=== PATIENT | male | born 1940 | race Caucasian/White ===

== ENCOUNTER 2017-03-28 01:01 | Day surgery (SDC) | payer MEDICARE, OTHER ==
[2017-03-28] VITALS (7 sets, daily range): BP systolic 92–133; BP diastolic 54–88
[~2017-03-28] VITALS: Ht 175.3 cm; Wt 64.9 kg
[~2017-03-28 01:01] MED LIST: AMOX-559 PO; ASCO-183 PO; ASPI81TA94 PO; ATOR40TA24 PO; ATOR40TA69 PO; AZIT-1 PO; AZIT-17 PO; CHOL10005 PO; CHOL200022 PO; CLO75 PO; CLOP75TA PO; CYA1000 PO; FAMO-67 PO; FISH1CAP22 PO; FOLI-68 PO; GOLD1CAP PO; GUAI600T57 PO; HERBALS; LACT1CAP6 PO; LISI-362 PO; LISI20TA29 PO; MAGN250T34 PO; METO25TA93 PO; MULT-820 PO; OMEG-11 PO; ROBC PO; TES5T TOP; TEST2.5G TD; UBID100C44 PO; UBID50CA24 PO; VARD10TA19 PO; VARD10TA20 PO; VITA-175 PO; VITA-197 PO; VITAMINS; [UNRECOGNIZED DRUG - CODE] UR
[2017-03-28] MEDS ORDERED: PROPOFOL EMUL(*) 10MG/ML 20 ML 40 ML ONE (07:02)
[2017-03-28] MEDS ORDERED: NORMOSOL R SOLN(*) 1000 ML BAG 1,000 ML IV PRN (07:40)
[2017-03-28] MEDS ORDERED: MIDAZOLAM 2 MG/2 ML VIAL IVP ONE (07:40)
[2017-03-28] MEDS ORDERED: LIDOCAINE/SOD BICARB 8.4% SYR ID ONE (07:40)
[2017-03-28] MEDS ORDERED: PROPOFOL EMUL(*) 10MG/ML 20 ML 20 ML ONE (08:58)
--- NOTE | 2017-03-28 09:14 | Short(Outpt) Discharge Summary ---
Discharge Summary Reason for Hosp/Final Diag: (1) Colon cancer screening Status: Chronic Hospital Course & Plan: Colonoscopy with polypectomy completed without problems. Departure Discharge to: Home, Self Care Discharge Instructions Home Meds Active Scripts Metoprolol Tartrate (METOPROLOL TARTRATE) 25 Mg Tablet, 0.5 TAB PO BID, #90 TAB 1 Refill Prov:LUIS M SESAY MD 03/09/17 Atorvastatin Calcium (ATORVASTATIN CALCIUM) 40 Mg Tablet, 1 TAB PO QDAY, #90 TAB 3 Refills Prov:LUIS M SESAY MD 10/03/16 Reported Medications Alprostadil (MUSE) 500 Mcg Supp.ureth, 1 SUPP UR QDAY Y for sexual activity 08/31/15 TESTOSTERONE 1% Topical Gel (ANDROGEL 1% Topical Gel) 5 Gm Gel, 1 PACKET TOP QDAY, PACKET 08/31/15 Vardenafil Hcl (STAXYN) 10 Mg Tab.rapdis, 1 TAB PO QDAY Y for sexual activity 08/31/15 Ubidecarenone (CO Q-10) 50 Mg Capsule, 1 CAP PO QDAY, CAPSULE 08/31/15 Fish Oil/Vit E/Fat No.5/Hc137 (SUPER OMEGA-3 SOFTGEL) 1 Each Capsule, 1 CAP PO QDAY, CAPSULE 08/31/15 Folic Acid (FOLIC ACID) 1 Mg Tablet, 1 TAB PO QDAY, TAB 08/31/15 Vitamin E Mixed (VITAMIN E) 400 Unit Capsule, 1 CAP PO QDAY, CAPSULE 08/31/15 Cholecalciferol (Vitamin D3) (VITAMIN D) 2,000 Unit Tablet, 1 TAB PO QDAY, TAB 08/31/15 Fernandez Seal/Echinacea Purpurea (ECHINACEA & GOLDENSEAL CAP) 1 Each Capsule, 1 CAP PO QDAY, CAPSULE 08/31/15 Lactobacillus Combination No.4 (PROBIOTIC) 1 Each Capsule, 1 CAP PO QDAY, CAPSULE 08/31/15 Cyanocobalamin (Vitamin B-12) (VITAMIN B-12) 1,000 Mcg Tablet, 1 TAB PO QDAY, CAPSULE 08/31/15 Vitamin B Complex (B COMPLEX) 1 Each Tablet, 1 TAB PO QDAY 08/31/15 Aspirin (ASPIRIN) 81 Mg Tab.chew, 1 TAB PO QDAY, TAB.CHEW 10/15/13 Famotidine (FAMOTIDINE) 20 Mg Tablet, 1 TAB PO BID Y for GAS/HEARTBURN 10/15/13 Discontinued Scripts Guaifenesin/Codeine (GUAIFENESIN-CODEINE SYRUP) 5 Ml Syrp, 1-2 TSP PO QID Y for cough, #4 OZ 0 Refills Prov:LUIS M SESAY MD 03/15/17 Diet: Regular Activity: As Tolerated Special Instructions: Your colonoscopy was completed without any problems and your prep was excellent (Good Job!!). I removed a single polyp from your colon and it was sent to pathology. We will call you in the next week to let you know what the polyp is but, in any case, I recommend that your next colonoscopy, and possibly your last colonoscopy (if normal) be at 81 years old. FELIX DRAKE MD Mar 28, 2017 09:14
== END 2017-03-28 10:50 | disposition home or self-care (01) ==
LOC: OR 01:01
PROVIDERS: ATTEND Surgery
DX: Z12.11 Encounter for screening for malignant neoplasm of colon (principal); K63.5 Polyp of colon
CPT/HCPCS: 00811; 45385; 88305; J2704

== ENCOUNTER 2017-11-10 17:14 | Emergency (ER) | payer MEDICARE, OTHER ==
[~2017-11-10 17:14] MED LIST changes: -BROM5DRO2; -OFLO5DRO41; -PRED5DRO34; -TADA20TA33
--- NOTE | 2017-11-10 17:23 | ER Report ---
History and Physical Time Seen By MD: 17:16 Hx. of Stated Complaint: CP STARTED AT 1515 WHILE HIKING, 324 ASA GIVEN EN ROUTE, 1 NITRO GIVEN WELL HPI/ROS CHIEF COMPLAINT: Chest pain HISTORY OF PRESENT ILLNESS: 76-year-old male patient presents to emergency room with complaint of chest pain. Patient states that he was up hiking today with his daughter. He states they went approximately 3 miles and he developed signif icant chest pain. He states the chest pain started about 3:15 this afternoon. He states that he discuss this with his daughter who felt that they needed to stop, she is to go back the truck and coming get him. She felt like he needed to come to the hospital and get evaluated. Patient does have a past medical history of RI and 2 stents in the past. He has had a catheter done approximately 2 years a go which was clean. Patient denies any nausea, vomiting. He states he does have to burp a lot and feels like when he burps it does help with the discomfort. REVIEW OF SYSTEMS: Respiratory: No cough, no dyspnea. Cardiovascular: As noted above Gastrointestinal: No vomiting, no abdominal pain. Musculoskeletal: No back pain. Allergies: Coded Allergies: codeine (Verified Allergy, Severe, oral swelling, 11/10/17) guaifenesin (Verified Allergy, Severe, oral swelling, 11/10/17) pseudoephedrine (Verified Adverse Reaction, Intermediate, makes BP go very high, 11/10/17) Home Meds Active Scripts Metoprolol Tartrate (METOPROLOL TARTRATE) 25 Mg Tablet, 0.5 TAB PO BID, #90 TAB 3 Refills Prov:LUIS M SESAY MD 10/23/17 Atorvastatin Calcium (ATORVASTATIN CALCIUM) 40 Mg Tablet, 1 TAB PO QDAY, #90 TAB 3 Refills Prov:LUIS M SESAY MD 10/03/16 Reported Medications Tadalafil (CIALIS) 20 Mg Tablet 11/10/17 Bromfenac Sodium (Bromsite) 0.075 % Drops 11/10/17 Ofloxacin (Ofloxacin) 0.3 % Drops 11/10/17 Prednisolone Acetate (PREDNISOLONE ACETATE) 5 Ml Drops.susp 11/10/17 TESTOSTERONE 1% Topical Gel (ANDROGEL 1% Topical Gel) 5 Gm Gel, 1 PACKET TOP QDAY, PACKET 08/31/15 Ubidecarenone (CO Q-10) 50 Mg Capsule, 1 CAP PO QDAY, CAPSULE 08/31/15 Fish Oil/Vit E/Fat No.5/Hc137 (SUPER OMEGA-3 SOFTGEL) 1 Each Capsule, 1 CAP PO QDAY, CAPSULE 08/31/15 Cyanocobalamin (Vitamin B-12) (VITAMIN B-12) 1,000 Mcg Tablet, 1 TAB PO QDAY, CAPSULE 08/31/15 Aspirin (ASPIRIN) 81 Mg Tab.chew, 1 TAB PO QDAY, TAB.CHEW 10/15/13 Famotidine (FAMOTIDINE) 20 Mg Tablet, 1 TAB PO BID PRN for GAS/HEARTBURN 10/15/13 Discontinued Reported Medications Vardenafil Hcl (STAXYN) 10 Mg Tab.rapdis, 1 TAB PO QDAY PRN for sexual activity 08/31/15 Folic Acid (FOLIC ACID) 1 Mg Tablet, 1 TAB PO QDAY, TAB 08/31/15 Vitamin E Mixed (VITAMIN E) 400 Unit Capsule, 1 CAP PO QDAY, CAPSULE 08/31/15 Cholecalciferol (Vitamin D3) (VITAMIN D) 2,000 Unit Tablet, 1 TAB PO QDAY, TAB 08/31/15 Fernandez Seal/Echinacea Purpurea (ECHINACEA & GOLDENSEAL CAP) 1 Each Capsule, 1 CAP PO QDAY, CAPSULE 08/31/15 Lactobacillus Combination No.4 (PROBIOTIC) 1 Each Capsule, 1 CAP PO QDAY, CAPSULE 08/31/15 Vitamin B Complex (B COMPLEX) 1 Each Tablet, 1 TAB PO QDAY 08/31/15 Past Medical/Surgical History Patient has a past medical history of RI, hypertension, nocturia, right hand fracture. Patient has a surgical history of skin cancer removed from left ear, cervical laminectomy, right hand surgery, coronary stent 2. Patient has a family medical history of cancer. Reviewed Nurses Notes: Yes Hx Smoking: Yes Smoking Status: Former Smoker Exposure to Second Hand Smoke?: Yes Hx Alcohol Use: No Constitutional Vital Sign - Last 24 Hours 11/10/17 11/10/17 11/10/17 11/10/17 17:15 17:30 17:45 18:06 Temp 97.5 Pulse 60 44 56 Resp 16 24 13 B/P (MAP) 116/55 104/60 (75) 112/54 (73) Pulse Ox 93 96 95 O2 Delivery Room Air 11/10/17 11/10/17 11/10/17 11/10/17 18:15 18:30 18:45 19:00 Pulse 54 42 41 44 Resp 22 10 87 18 B/P (MAP) 100/49 (66) 88/47 (61) Pulse Ox 92 95 98 97 11/10/17 11/10/17 11/10/17 11/10/17 19:05 19:20 19:30 19:35 Pulse 44 50 50 Resp 11 19 B/P (MAP) 110/59 (76) Pulse Ox 95 92 98 11/10/17 11/10/17 11/10/17 11/10/17 19:50 20:00 20:05 20:10 Pulse 50 54 54 Resp 0 28 B/P (MAP) 115/62 (79) Pulse Ox 97 98 97 11/10/17 11/10/17 11/10/17 11/10/17 20:25 20:30 20:40 20:55 Pulse 50 71 63 Resp 31 B/P (MAP) 118/58 (78) Pulse Ox 98 96 96 11/10/17 11/10/17 11/10/17 21:00 21:10 21:25 Pulse 73 ??? B/P (MAP) 119/64 (82) Pulse Ox 96 Physical Exam General Appearance: The patient is alert, has no immediate need for airway protection and no current signs of toxicity. Respiratory: Chest is non tender, lungs are clear to auscultation. Cardiac: regular rate and rhythm Gastrointestinal: Abdomen is soft and non tender, no masses, bowel sounds normal. Musculoskeletal: Neck: Neck is supple and non tender. Extremities have full range of motion and are non tender. Skin: No rashes or lesions. DIFFERENTIAL DIAGNOSIS: After history and physical exam differential diagnosis was considered for chest pain including but not limited to myocardial ischemia, pericarditis pulmonary embolus, chest wall pain, pleural inflammation and pulmonary infectious causes. Medical Decision Making Data Points Result Diagram: 11/10/17 1630 11/10/17 1630 Laboratory Hematology Test 11/10/17 16:30 11/10/17 19:03 Red Blood Count 4.50 M/uL (4.00-5.60) Mean Corpuscular Volume 100.2 fL (80.0-96.0) Mean Corpuscular Hemoglobin 34.5 pg (26.0-33.0) Mean Corpuscular Hemoglobin Concent 34.4 g/dL (32.0-36.0) Red Cell Distribution Width 12.6 % (11.5-14.5) Mean Platelet Volume 7.9 fL (7.2-11.1) Neutrophils (%) (Auto) 85.1 % (39.4-72.5) Lymphocytes (%) (Auto) 9.6 % (17.6-49.6) Monocytes (%) (Auto) 4.8 % (4.1-12.4) Eosinophils (%) (Auto) 0.2 % (0.4-6.7) Basophils (%) (Auto) 0.3 % (0.3-1.4) Nucleated RBC Relative Count (auto) 0.0 /100WBC Neutrophils # (Auto) 13.0 K/uL (2.0-7.4) Lymphocytes # (Auto) 1.5 K/uL (1.3-3.6) Monocytes # (Auto) 0.7 K/uL (0.3-1.0) Eosinophils # (Auto) 0.0 K/uL (0.0-0.5) Basophils # (Auto) 0.0 K/uL (0.0-0.1) Nucleated RBC Absolute Count (auto) 0.00 K/uL Sodium Level 139 mmol/L (137-145) Potassium Level 4.0 mmol/L (3.5-5.0) Chloride Level 101 mmol/L (98-107) Carbon Dioxide Level 22 mmol/L (22-30) Blood Urea Nitrogen 29 mg/dl (9-21) Creatinine 1.60 mg/dl (0.66-1.25) Glomerular Filtration Rate Calc 42.3 Random Glucose 126 mg/dl (75-110) Calcium Level 10.5 mg/dl (8.4-10.2) Total Bilirubin 1.1 mg/dl (0.2-1.3) Aspartate Amino Transf (AST/SGOT) 34 U/L (0-35) Alanine Aminotransferase (ALT/SGPT) 33 U/L (0-56) Alkaline Phosphatase 59 U/L (0-126) Total Protein 7.0 g/dl (6.3-8.2) Albumin 4.7 g/dl (3.5-5.0) Lipase 114 U/L (23-300) Troponin I 0.646 ng/ml Chemistry Test 11/10/17 16:30 11/10/17 19:03 White Blood Count 15.3 k/uL (4.5-11.0) Red Blood Count 4.50 M/uL (4.00-5.60) Hemoglobin 15.5 g/dL (14.0-18.0) Hematocrit 45.1 % (42.0-52.0) Mean Corpuscular Volume 100.2 fL (80.0-96.0) Mean Corpuscular Hemoglobin 34.5 pg (26.0-33.0) Mean Corpuscular Hemoglobin Concent 34.4 g/dL (32.0-36.0) Red Cell Distribution Width 12.6 % (11.5-14.5) Platelet Count 302 K/uL (150-450) Mean Platelet Volume 7.9 fL (7.2-11.1) Neutrophils (%) (Auto) 85.1 % (39.4-72.5) Lymphocytes (%) (Auto) 9.6 % (17.6-49.6) Monocytes (%) (Auto) 4.8 % (4.1-12.4) Eosinophils (%) (Auto) 0.2 % (0.4-6.7) Basophils (%) (Auto) 0.3 % (0.3-1.4) Nucleated RBC Relative Count (auto) 0.0 /100WBC Neutrophils # (Auto) 13.0 K/uL (2.0-7.4) Lymphocytes # (Auto) 1.5 K/uL (1.3-3.6) Monocytes # (Auto) 0.7 K/uL (0.3-1.0) Eosinophils # (Auto) 0.0 K/uL (0.0-0.5) Basophils # (Auto) 0.0 K/uL (0.0-0.1) Nucleated RBC Absolute Count (auto) 0.00 K/uL Glomerular Filtration Rate Calc 42.3 Calcium Level 10.5 mg/dl (8.4-10.2) Total Bilirubin 1.1 mg/dl (0.2-1.3) Aspartate Amino Transf (AST/SGOT) 34 U/L (0-35) Alanine Aminotransferase (ALT/SGPT) 33 U/L (0-56) Alkaline Phosphatase 59 U/L (0-126) Total Protein 7.0 g/dl (6.3-8.2) Albumin 4.7 g/dl (3.5-5.0) Lipase 114 U/L (23-300) Troponin I 0.646 ng/ml EKG/Imaging EKG Interpretation 12 lead EKG done at 1729: Rhythm: Marked sinus bradycardia with sinus arrhythmia with a ventricular rate of 48 bpm [place]: normal QRS: normal ST segments: Septal infarct of undetermined age 12 lead EKG done at 1847: Rhythm: Marked sinus bradycardia with ventricular rate of 41 bpm [place]: normal QRS: normal ST segments: Septal infarct of undetermined age Unchanged from EKG done at 1729 Imaging 2 VIEWS CHEST INDICATION: Chest pain. COMPARISON: 08/13/2015. FINDINGS: Cardiomediastinal silhouette and pulmonary vessels within normal limits. There is no focal infiltrate or lobar consolidation. There is no pneumothorax or pleural effusion. Stable small granuloma in left midlung. No new nodules. Upper abdomen is unremarkable. No acute bony abnormality. IMPRESSION: 1. No acute cardiopulmonary process. Report Dictated By: Nicolas García at 11/10/2017 6:12 PM Report E-Signed By: Nicolas García at 11/10/2017 6:14 PM ED Course/Re-evaluation ED Course Patient is admitted and examined, history and physical were obtained. Differential diagnoses were considered. On examination patient had clear lungs, regular heart, abdomen soft nontender. A CBC, CMP, troponin, EKG, chest x-ray w ere done. Patient had a elevated white count of 15,000 with a left shift. I believe the likely secondary to stress response. EKG showed a sinus bradycardia with ventricular rate of 48 bpm with an age indeterminant septal infarct. Original troponin was indeterminate at 0.042. We did wait approximately an hour and a half to repeat the troponin. During that time we got the chest x-ray done which was negative. I did give the patient a dose of GI cocktail, Maalox and viscous lidocaine, which improved his chest pain considerably. Repeat EKG was done at 1900 which showed an increase in his troponin from 0.042-0.664. I discussed findings with patient. Patient wanted to go ahead and follow-up in [place] where his cardiology group is. I did call over and discussed the case with Dr. Correa, Hospitalist, and Dr. Carbajal, Interactive Project Manager, who agreed to accept the patient for transfer. Dr. Carbajal requested we start the patient on a heparin drip prior to transfer. I discussed this with the patient and his and they verbalized understanding and agreement. Decision to Disposition Date: Nov 10, 2017 Decision to Disposition Time: 20:35 Depart Departure Latest Vital Signs Vital Signs Date Time Temp Pulse Resp B/P (MAP) Pulse Ox O2 Delivery O2 Flow Rate FiO2 11/10/17 21:25 ??? 11/10/17 21:10 96 11/10/17 21:00 119/64 (82) 11/10/17 20:40 31 11/10/17 17:15 97.5 Room Air Impression: Primary Impression: Non-ST elevation RI (NSTEMI) Condition: Condition Unchanged Disposition: XFER TO [facility] Referrals: LUIS M SESAY MD (PCP) AGUILA ALDANA Nov 10, 2017 17:23
[2017-11-10] MEDS ORDERED: ONDANSETRON 4 MG/2 ML VIAL IVP ONE (17:30)
[2017-11-10 17:31] LABS: PLATELET COUNT, AUTOMATED 302 K/uL (150-450)
[2017-11-10] MEDS ORDERED: BROM5DRO2 (17:38)
[2017-11-10] MEDS ORDERED: PRED5DRO34 (17:38)
[2017-11-10] MEDS ORDERED: TADA20TA33 (17:38)
[2017-11-10] MEDS ORDERED: OFLO5DRO41 (17:38)
--- NOTE | 2017-11-10 18:17 | RADIOLOGY IMAGING REPORT ---
[place] [facility] [place] Samson Rai : 1940 MR: [id number] V: [id number] EXAM DATE: ORDERING PHYSICIAN: AGUILA ALDANA TECHNOLOGIST: Location: [facility] Patient: Samson Rai : 1940 Visit/Account:[id number] Date of Sevice: 11/10/2017 2 VIEWS CHEST INDICATION: Chest pain. COMPARISON: 08/13/2015. FINDINGS: Cardiomediastinal silhouette and pulmonary vessels within normal limits. There is no focal infiltrate or lobar consolidation. There is no pneumothorax or pleural effusion. Stable small granuloma in left midlung. No new nodules. Upper abdomen is unremarkable. No acute bony abnormality. IMPRESSION: 1. No acute cardiopulmonary process. Report Dictated By: Nicolas García at 11/10/2017 6:12 PM Report E-Signed By: Nicolas García at 11/10/2017 6:14 PM WSN:[id number]
--- NOTE | 2017-11-10 18:21 | EKG ---
[place] [facility] [place] NAME: CORINNE FERNANDO : [id number] MR: [id number] V: [id number] EXAM DATE: ORDERING PHYSICIAN: AGUILA ALDANA TECHNOLOGIST: ANGELIA Akers Reason : CARDIAC Blood Pressure : / mmHG Vent. Rate : 048 BPM Atrial Rate : 048 BPM P-R Int : 162 ms QRS Dur : 082 ms QT Int : 468 ms P-R-T Axes : 065 039 039 degrees QTc Int : 418 ms Marked sinus bradycardia with sinus arrhythmia Possible Left atrial enlargement Septal infarct , age undetermined No ST-T abnormalities When compared with ECG of 13-AUG-2015 11:44, Non-specific change in ST segment in Inferior leads Confirmed by ANGELO VALLE ([id number]) on 11/10/2017 6:53:45 PM Referred By: KATYA Confirmed By:ANGELO VALLE
[2017-11-10] MEDS ORDERED: LIDOCAINE 2% VISC SLN 15ML UDC PO ONE (18:30)
[2017-11-10] MEDS ORDERED: MAG HYD/AL HYD/SIMETH 30ML UDC PO ONE (18:30)
--- NOTE | 2017-11-10 19:00 | EKG ---
FACILITY: [facility] [place] PATIENT NAME: CORINNE FERNANDO : [id number] MR: [id number] V: [id number] EXAM DATE: ORDERING PHYSICIAN: AGUILA ALDANA TECHNOLOGIST: ANGELIA Akers Reason : CARDIAC Blood Pressure : / mmHG Vent. Rate : 041 BPM Atrial Rate : 041 BPM P-R Int : 156 ms QRS Dur : 082 ms QT Int : 526 ms P-R-T Axes : -21 048 047 degrees QTc Int : 433 ms Marked sinus bradycardia Septal infarct (cited on or before 10-NOV-2017) No ST-T abnormalities When compared with ECG of 10-NOV-2017 17:29, Non specific ST abnormalities inferiorly have resolved. Confirmed by ANGELO VALLE ([id number]) on 11/10/2017 10:44:21 PM Referred By: KATYA Confirmed By:ANGELO VALLE
[2017-11-10] MEDS ORDERED: HEPARIN* SOD/D5W 25000 U/500ML 500 ML IV ONE (19:53)
[2017-11-10] MEDS ORDERED: NS(*) 0.9% 1000 ML BAG 1,000 ML IV ONE (20:15)
[2017-11-10 21:00] VITALS: BP 119/64
== END 2017-11-10 21:40 | disposition short-term general hospital (02) ==
LOC: ER 17:25
DX: I21.4 Non-ST elevation (NSTEMI) myocardial infarction (principal)
CPT/HCPCS: 36415; 71046; 83690; 84484; 85025; 93005; 96365; 96366; 96375; 99285; A9270; J1644; J2405; J7030; 82040; 82247; 82310; 82374; 82435; 82565; 82947; 84075; 84132; 84155; 84295; 84450; 84460; 84520

== ENCOUNTER → 2017-11-10 | Outpatient (CLI) | payer MEDICARE, OTHER ==
[~2017-11-10] MED LIST changes: +BROM5DRO2; +CHOL200018 PO; -CHOL200022 PO; +OFLO5DRO41; +PRED5DRO34; +TADA20TA33; +UBID100C34 PO; -UBID100C44 PO
== END ==
LOC: AMB 16:00
PROVIDERS: ATTEND Nurse Practitioner
DX: R07.9 Chest pain, unspecified (principal); R42 Dizziness and giddiness
CPT/HCPCS: A0425; A0427

== ENCOUNTER → 2017-11-10 | Outpatient (CLI) | payer MEDICARE, OTHER | LOC: AMB 21:23 | PROVIDERS: ATTEND Nurse Practitioner | DX: R07.1 Chest pain on breathing (principal); R79.89 Other specified abnormal findings of blood chemistry ==

== ENCOUNTER 2018-02-22 14:00 | Outpatient (RCR) | payer MEDICARE, OTHER ==
[2018-02-20 15:59] VITALS: BP 134/72
[2018-02-20 16:00] VITALS: BP 118/62
[~2018-02-22 14:00] MED LIST changes: +BROM5DRO2; +OFLO5DRO41; +PRED5DRO34; +TADA20TA33
[2018-02-22 16:54] VITALS: BP_SYST 118; BP_SYST 120; BP_DIAS 68; BP_DIAS 70
--- NOTE | 2018-02-25 14:27 | CARDIAC REHAB PLAN OF CARE ---
Physician: Shelley Rodgers MD Patient is being seen: Moriah Lopez Medical Diagnosis: NSTEMI; PTCA x 4 Date of Onset: 11/11/17 Number of treatments: 36 02/25/18 Exercise Discharge/Follow-Up (Date: 02/25/18): The patient came to cardiac rehab already in high physical condition. He exercised regularly and had a high aerobic capacity. Upon his initial evaluation the patient walked a total of 1750ft during his 6-Minute Walk Test with a peak HR of 102bpm and, expectantly, this did not vary much upon his post test due to his already previously high fitness level. During his 36 visit rehab he continued exercising at vigorous levels of exercise with hemodynamic responses within normal limits. Nutrition Discharge/Follow-Up (Date: 02/25/18): The patient initially came to cardiac rehab with an already well balanced diet. He has a BMI within normal limits and is well aware of his cholesterol levels. During his rehabilitation sessions we provided him with nutritional information and educational opportunities. It is believed he will continue with his healthy diet and lifestyle. Psychosocial Discharge/Follow-Up (Date: 02/25/18): The patient initially came in with low levels of both anxiety and depression according to the Hospital Anxiety and Depression Survey (HADS) assessment. His responses to these questions remained relatively the same, with small variations. He reports enjoying the overall cardiac rehab program and always remained in high spirits during his visits. Physician Signature: Date: MTDD
== END 2018-02-22 18:00 | disposition home or self-care (01) ==
LOC: CARD 14:00
PROVIDERS: ATTEND Internal Medicine Cardiovascular Disease
DX: I25.2 Old myocardial infarction (principal); Z95.5 Presence of coronary angioplasty implant and graft
CPT/HCPCS: 93798